=== PATIENT | male | born 1955 | race Caucasian/White ===

== ENCOUNTER 2017-12-05 12:15 | Inpatient (IN) | payer OTHER ==
[~2017-12-05] VITALS: Ht 182.9 cm; Wt 96.8 kg
[2017-12-05 12:24] VITALS: BP 158/70; PULSE 159; RESP 15; TEMP 98.7; O2SAT 96
[2017-12-05] MEDS ORDERED: CLAR10CA3 PO (12:34)
[2017-12-05] MEDS ORDERED: ASPI81TA81 (12:34)
[2017-12-05] MEDS ORDERED: HYDR-755 PO (12:34)
[2017-12-05] MEDS ORDERED: FLUT50SP EACH NARE (12:34)
[2017-12-05] MEDS ORDERED: TRAM50TA PO (12:34)
[2017-12-05] MEDS ORDERED: MULT-65 PO (12:34)
[2017-12-05] MEDS ORDERED: DULO1CAP2 PO (12:34)
[2017-12-05] MEDS ORDERED: TRAZ100T10 PO (12:34)
[2017-12-05] MEDS ORDERED: CARV25TA (12:34)
[2017-12-05] MEDS ORDERED: DILTIAZEM HCL 25 MG/5 ML VIAL IV PUSH ONE (12:45)
[2017-12-05 12:49] VITALS: O2SAT 97
[2017-12-05 13:10] LABS: AUTOMATED NEUTROPHIL # 7.7 TH/MM3 (1.8-7.7); BASOPHIL % 0.4 % (0.0-2.0); EOSINOPHIL # 0.1 TH/MM3 (0-0.4); EOSINOPHIL % 0.6 % (0.0-4.0); HEMATOCRIT 43.8 % (39.0-51.0); HEMOGLOBIN 14.9 GM/DL (13.0-17.0); LYMPH % 11.9 % (9.0-44.0); LYMPHOCYTE # 1.2 TH/MM3 (1.0-4.8); MEAN CELL VOLUME 102.9 FL (80.0-100.0); MEAN PLATELET VOLUME 9.8 FL (7.0-11.0); MONO % 10.4 % (0.0-8.0); NEUT % 76.7 % (16.0-70.0); PLATELET COUNT 185 TH/MM3 (150-450); RED BLOOD COUNT 4.26 MIL/MM3 (4.50-5.90); RED CELL DISTRIBUTION WIDTH 13.3 % (11.6-17.2)
[2017-12-05 13:22] LABS: INTERNATIONAL NORMALIZED RATIO 1.1 RATIO
[2017-12-05 13:38] LABS: ALBUMIN 3.1 GM/DL (3.4-5.0); AST (GOT) 25 U/L (15-37); BLOOD UREA NITROGEN 14 MG/DL (7-18); CHLORIDE 106 MEQ/L (98-107); CREATININE 1.04 MG/DL (0.60-1.30); GLOMERULAR FILTRATION RATE 73 ML/MIN (>89); GLUCOSE,RANDOM 106 MG/DL (74-106); MAGNESIUM 1.4 MG/DL (1.5-2.5); SODIUM (NA) 138 MEQ/L (136-145)
[2017-12-05 13:43] LABS: ALKALINE PHOSPHATASE 82 U/L (45-117); ALT (GPT) 36 U/L (12-78); TOTAL BILIRUBIN ADULT 0.5 MG/DL (0.2-1.0); TOTAL PROTEIN 7.5 GM/DL (6.4-8.2); TROPONIN I LESS THAN 0.02 NG/ML (0.02-0.05)
[2017-12-05] MEDS ORDERED: DILTIAZEM HCL 25 MG/5 ML VIAL IV PUSH PRN (13:45)
--- NOTE | 2017-12-05 13:59 | RADRPT ---
EXAM DATE/TIME: 12/05/2017 13:31 [place] COMPARISON: No previous studies available for comparison. INDICATIONS : Chest pain MEDICAL HISTORY : A-fib SURGICAL HISTORY : None. ENCOUNTER: Initial ACUITY: 1 day PAIN SCORE: 0/10 LOCATION: Bilateral chest FINDINGS: 2 portable frontal views of the chest demonstrate the lungs to be symmetrically aerated without evide nce of mass, infiltrate or effusion. The cardiomediastinal contours are unremarkable. Osseous struc tures are intact. CONCLUSION: No acute disease. Vaibhav Coulter Jr., MD on December 05, 2017 at 13:57 Board Certified Radiologist. This report was verified electronically.
[2017-12-05 14:00] VITALS: BP 114/66; PULSE 110; RESP 17; O2SAT 98
[2017-12-05] MEDS: DILTIAZEM INJ 125 MG in SODIUM CHLORIDE 0.9% INJ 100 ML IV PRN ×2 (14:16→16:04)
--- NOTE | 2017-12-05 15:23 | PD ---
HPI Chief Complaint: Cardiac Complaint Time Seen by Provider: 12:35 Travel History International Travel<30 days: No Contact w/Intl Traveler<30days: No Traveled to known affect area: No History of Present Illness HPI 61-year-old male that presents to the ED for evaluation of atrial fibrillation. Patient was seen at the [facility] today and had an EKG that shows elevated heart rate of the joint oblation RVR. Per patient she's had it A. fib in the past about 10 years ago and had a cardioversion with improvement of symptoms. He hasn't had anything like that since. He does take covered all over his been taking it chronically with minimal issues. Per patient she's been under a lot of stress lately. He has upcoming divorce with his of some time and apparently things are going well. He is also very concerned about the dog that he has been out of his psychosis. He is also been battling some congestion and allergies for the past couple of months that did not seem to be getting better. He wasn't sure whether this things trigger. He denies any pain but he states feeling very tired and weak. He denies any shortness of breath. No recent travel. Does not take any blood thinners. Does take an aspirin at night. History of hypertension as well as. Follow with the [facility] for his care. No pain at this time but states that he feels like his heart is racing. PFSH Past Medical History Depression: Yes Coronary Artery Disease: Yes Tetanus Vaccination: > 5 Years Influenza Vaccination: Yes Past Surgical History Surgical History: No Previous Surgery Social History Alcohol Use: Yes (10/17 VODKA ) Tobacco Use: No Substance Use: Yes (MARIJUANA DAILY ) Allergies-Medications (Allergen,Severity, Reaction): Coded Allergies: bupropion (Verified Allergy, Severe, headaches, 12/05/17) Reported Meds & Prescriptions Reported Meds & Active Scripts Active Reported Trazodone (Trazodone HCl) 100 Mg Tablet 100 Mg PO HS Tramadol (Tramadol HCl) 50 Mg Tab 50 Mg PO Q4H PRN Duloxetine DR (Duloxetine HCl) 30 Mg Capdr 30 Mg PO DAILY Claritin (Loratadine) 10 Mg Cap 10 Mg PO DAILY Fluticasone Nasal [place] 50 Mcg/Act Naspr 50 Mcg EACH NARE BID 50 mcg/spray Carvedilol 25 Mg Tab 25 Mg BID Hydroxyzine HCl 10 Mg Tab 10 Mg PO TID Multi-Vitamin Daily (Multiple Vitamin) 1 Tab Tab 1 Tab PO DAILY Aspir-81 (Aspirin) 81 Mg Tabdr Review of Systems Except as stated in HPI: all other systems reviewed are Neg Physical Exam Narrative GENERAL: SKIN: Warm and dry. HEAD: Atraumatic. Normocephalic. EYES: Pupils equal and round. No scleral icterus. No injection or drainage. ENT: No nasal bleeding or discharge. Mucous membranes pink and moist. Tongue is midline. No uvula deviation. NECK: Trachea midline. No JVD. CARDIOVASCULAR: Irregular rate and rhythm. No murmurs, S3, S4. RESPIRATORY: No accessory muscle use. Clear to auscultation. Breath sounds equal bilaterally. GASTROINTESTINAL: Abdomen soft, non-tender, nondistended. Hepatic and splenic margins not palpable. MUSCULOSKELETAL: Extremities without clubbing, cyanosis, or edema. No obvious deformities. Full range of motion of the upper and lower extremities bilaterally. 2+ pulses bilaterally. NEUROLOGICAL: Awake and alert. No obvious cranial nerve deficits. Motor grossly within normal limits. Five out of 5 muscle strength in the arms and legs. Normal speech. PSYCHIATRIC: Appropriate mood and affect; insight and judgment normal. Data Data Last Documented VS Vital Signs Date Time Temp Pulse Resp B/P (MAP) Pulse Ox O2 Delivery O2 Flow Rate FiO2 12/05/17 14:16 128 112/67 12/05/17 14:00 17 98 Nasal Cannula 2.00 12/05/17 12:24 98.7 Orders Orders Electrocardiogram (12/05/17 12:42) Complete Blood Count With Diff (12/05/17 12:42) Comprehensive Metabolic Panel (12/05/17 12:42) Ckmb (Isoenzyme) Profile (12/05/17 12:42) Troponin I (12/05/17 12:42) Prothrombin Time / Inr (Pt) (12/05/17 12:42) Act Partial Throm Time (Ptt) (12/05/17 12:42) Magnesium (Mg) (12/05/17 12:42) Chest, Single Ap (12/05/17 12:42) Iv Access Insert/Monitor (12/05/17 12:42) Ecg Monitoring (12/05/17 12:42) Oximetry (12/05/17 12:42) Diltiazem Inj (Cardizem Inj) (12/05/17 12:45) Vital Signs (Adult) Q15MX4,Q4H (12/05/17 13:24) Head Greenskeeper / Telemetry LAUREL.Q8H (12/05/17 13:24) Cardiac Rhythm LAUREL.Q8H (12/05/17 13:24) Notify Dr: Other (12/05/17 13:24) Diltiazem Inj (Cardizem Inj) (12/05/17 13:30) B-Type Natriuretic Peptide (12/05/17 13:42) Diltiazem Inj (Cardizem Inj) (12/05/17 13:45) Magnesium Sulfate 1 Gm Premix (Magnesium (12/05/17 16:00) Admit To Inpatient (12/05/17 ) Vital Signs (Adult) Q4H (12/05/17 15:46) Activity Oob With Assistance (12/05/17 15:46) Head Greenskeeper / Telemetry .CONTINUOUS (12/05/17 15:46) Sodium Chloride 0.9% Flush (Ns Flush) (12/05/17 16:00) Sodium Chloride 0.9% Flush (Ns Flush) (12/05/17 21:00) Comprehensive Metabolic Panel (12/06/17 06:00) Complete Blood Count With Diff (12/06/17 06:00) Scd Bilateral/Knee High LAUREL.BID (12/05/17 15:46) Naloxone Inj (Narcan Inj) (12/05/17 16:00) Magnesium Hydroxide Liq (Milk Of Magnesi (12/05/17 16:00) Sennosides (Senokot) (12/05/17 16:00) Bisacodyl Supp (Dulcolax Supp) (12/05/17 16:00) Lactulose Liq (Lactulose Liq) (12/05/17 16:00) Inpatient Certification (12/05/17 ) Admit Order (Ed Use Only) (12/05/17 15:58) Labs Laboratory Tests Test 12/05/17 12:50 White Blood Count 10.0 TH/MM3 Red Blood Count 4.26 MIL/MM3 Hemoglobin 14.9 GM/DL Hematocrit 43.8 % Mean Corpuscular Volume 102.9 FL Mean Corpuscular Hemoglobin 35.0 PG Mean Corpuscular Hemoglobin Concent 34.0 % Red Cell Distribution Width 13.3 % Platelet Count 185 TH/MM3 Mean Platelet Volume 9.8 FL Neutrophils (%) (Auto) 76.7 % Lymphocytes (%) (Auto) 11.9 % Monocytes (%) (Auto) 10.4 % Eosinophils (%) (Auto) 0.6 % Basophils (%) (Auto) 0.4 % Neutrophils # (Auto) 7.7 TH/MM3 Lymphocytes # (Auto) 1.2 TH/MM3 Monocytes # (Auto) 1.0 TH/MM3 Eosinophils # (Auto) 0.1 TH/MM3 Basophils # (Auto) 0.0 TH/MM3 CBC Comment DIFF FINAL Differential Comment Prothrombin Time 11.0 SEC Prothromb Time International Ratio 1.1 RATIO Activated Partial Thromboplast Time 24.7 SEC Blood Urea Nitrogen 14 MG/DL Creatinine 1.04 MG/DL Random Glucose 106 MG/DL Total Protein 7.5 GM/DL Albumin 3.1 GM/DL Calcium Level 9.0 MG/DL Magnesium Level 1.4 MG/DL Alkaline Phosphatase 82 U/L Aspartate Amino Transf (AST/SGOT) 25 U/L Alanine Aminotransferase (ALT/SGPT) 36 U/L Total Bilirubin 0.5 MG/DL Sodium Level 138 MEQ/L Potassium Level 4.1 MEQ/L Chloride Level 106 MEQ/L Carbon Dioxide Level 24.0 MEQ/L Anion Gap 8 MEQ/L Estimat Glomerular Filtration Rate 73 ML/MIN Total Creatine Kinase 63 U/L Troponin I LESS THAN 0.02 NG/ML B-Type Natriuretic Peptide 423 PG/ML MDM Medical Decision Making Medical Screen Exam Complete: Yes Emergency Medical Condition: Yes Medical Record Reviewed: Yes Interpretation(s) EKG shows A. fib with RVR and a heart rate in the 140s read by me and attending. CBC & BMP Diagram 12/05/17 12:50 Total Protein 7.5, Albumin 3.1 L, Calcium Level 9.0, Magnesium Level 1.4 L, Alkaline Phosphatase 82, Aspartate Amino Transf (AST/SGOT) 25, Alanine Aminotransferase (ALT/SGPT) 36, Total Bilirubin 0.5 Last Impressions Chest X-Ray 12/05/17 1242 Signed Impressions: Service Date/Time: Tuesday, December 05, 2017 13:31 - CONCLUSION: No acute disease. Vaibhav Coulter Jr., MD troponin and CKMB negative Differential Diagnosis Atrial fibrillation with RVR versus A. fib versus chest pain versus weakness versus CHF Narrative Course 61-year-old male that presents to the ED for evaluation of atrial fibrillation with RVR. Patient was properly examined and was found to have signs and symptoms consistent with A. fib with RVR. Very tachycardic initially in the 150s 170s. He was given a bolus of diltiazem with good results but after a couple minutes the heart rate came back up. He was given a second bolus with again improvement but the heart rate came coming back. He was put on the drip. Labs and imaging were ordered. Labs and imaging were essentially negative other than for A. fib and RVR. Because patient continues to have RVR we do recommend admission for further eval. Patient agrees with this plan. We had case management talk to the patient about who can take care of his dog at home as he is concerned that the dog will not survive without care. MAEVE was paged. Dr Flowers agrees to admission. Diagnosis Primary Impression: Atrial fibrillation with RVR Admitting Information Admitting Physician Requests: Admit Hiren Friedman Dec 05, 2017 15:22
[2017-12-05] MEDS ORDERED: SODIUM CHLORIDE 0.9% FLUSH 10 ML FLUSH IV FLUSH PRN (16:00)
[2017-12-05] MEDS ORDERED: MAGNESIUM HYDROXIDE SUSP 30 ML CUP PO PRN (16:00)
[2017-12-05] MEDS ORDERED: BISACODYL 10 MG SUPP RECTAL PRN (16:00)
[2017-12-05] MEDS ORDERED: MAGNESIUM SULFATE 1 GM PREMIX 100 ML IV ONE (16:00)
[2017-12-05] MEDS ORDERED: LACTULOSE SYRUP 20 GM/30 ML CUP PO PRN (16:00)
[2017-12-05] MEDS ORDERED: NALOXONE HCL 0.4 MG/ML AMP IV PUSH PRN (16:00)
[2017-12-05] MEDS ORDERED: SENNOSIDES 8.6 MG TAB PO PRN (16:00)
--- NOTE | 2017-12-05 16:08 | PD ---
Physical Exam Date Seen by Provider: Dec 05, 2017 Time Seen by Provider: 14:30 Narrative I am seeing this patient with Hiren Friedman PA-C. This is a 61-year-old male [facility] with RVR. Patient states she has had shortness of breath and lightheadedness over the last 2-3 weeks. Patient denies any chest pain, chest pressure. He states that when he exerts himself he becomes winded and short of breath. The patient has had previous cardioversions in the past. He states that he last had a cardioversion, 5 years ago. Patient does give history he has had a lot of stress and has been drinking a lot of alcohol over the last several weeks/months. He is currently going through divorce and reports that this has caused severe stress. Data Data Last Documented VS Vital Signs Date Time Temp Pulse Resp B/P (MAP) Pulse Ox O2 Delivery O2 Flow Rate FiO2 12/05/17 14:16 128 112/67 12/05/17 14:00 17 98 Nasal Cannula 2.00 12/05/17 12:24 98.7 Orders Orders Electrocardiogram (12/05/17 12:42) Complete Blood Count With Diff (12/05/17 12:42) Comprehensive Metabolic Panel (12/05/17 12:42) Ckmb (Isoenzyme) Profile (12/05/17 12:42) Troponin I (12/05/17 12:42) Prothrombin Time / Inr (Pt) (12/05/17 12:42) Act Partial Throm Time (Ptt) (12/05/17 12:42) Magnesium (Mg) (12/05/17 12:42) Chest, Single Ap (12/05/17 12:42) Iv Access Insert/Monitor (12/05/17 12:42) Ecg Monitoring (12/05/17 12:42) Oximetry (12/05/17 12:42) Diltiazem Inj (Cardizem Inj) (12/05/17 12:45) Vital Signs (Adult) Q15MX4,Q4H (12/05/17 13:24) Production Potter / Telemetry LAUREL.Q8H (12/05/17 13:24) Cardiac Rhythm LAUREL.Q8H (12/05/17 13:24) Notify Dr: Other (12/05/17 13:24) Diltiazem Inj (Cardizem Inj) (12/05/17 13:30) B-Type Natriuretic Peptide (12/05/17 13:42) Diltiazem Inj (Cardizem Inj) (12/05/17 13:45) Magnesium Sulfate 1 Gm Premix (Magnesium (12/05/17 16:00) Admit To Inpatient (12/05/17 ) Vital Signs (Adult) Q4H (12/05/17 15:46) Activity Oob With Assistance (12/05/17 15:46) Production Potter / Telemetry .CONTINUOUS (12/05/17 15:46) Sodium Chloride 0.9% Flush (Ns Flush) (12/05/17 16:00) Sodium Chloride 0.9% Flush (Ns Flush) (12/05/17 21:00) Comprehensive Metabolic Panel (12/06/17 06:00) Complete Blood Count With Diff (12/06/17 06:00) Scd Bilateral/Knee High LAUREL.BID (12/05/17 15:46) Naloxone Inj (Narcan Inj) (12/05/17 16:00) Magnesium Hydroxide Liq (Milk Of Magnesi (12/05/17 16:00) Sennosides (Senokot) (12/05/17 16:00) Bisacodyl Supp (Dulcolax Supp) (12/05/17 16:00) Lactulose Liq (Lactulose Liq) (12/05/17 16:00) Inpatient Certification (12/05/17 ) Admit Order (Ed Use Only) (12/05/17 15:58) Labs Laboratory Tests Test 12/05/17 12:50 White Blood Count 10.0 TH/MM3 Red Blood Count 4.26 MIL/MM3 Hemoglobin 14.9 GM/DL Hematocrit 43.8 % Mean Corpuscular Volume 102.9 FL Mean Corpuscular Hemoglobin 35.0 PG Mean Corpuscular Hemoglobin Concent 34.0 % Red Cell Distribution Width 13.3 % Platelet Count 185 TH/MM3 Mean Platelet Volume 9.8 FL Neutrophils (%) (Auto) 76.7 % Lymphocytes (%) (Auto) 11.9 % Monocytes (%) (Auto) 10.4 % Eosinophils (%) (Auto) 0.6 % Basophils (%) (Auto) 0.4 % Neutrophils # (Auto) 7.7 TH/MM3 Lymphocytes # (Auto) 1.2 TH/MM3 Monocytes # (Auto) 1.0 TH/MM3 Eosinophils # (Auto) 0.1 TH/MM3 Basophils # (Auto) 0.0 TH/MM3 CBC Comment DIFF FINAL Differential Comment Prothrombin Time 11.0 SEC Prothromb Time International Ratio 1.1 RATIO Activated Partial Thromboplast Time 24.7 SEC Blood Urea Nitrogen 14 MG/DL Creatinine 1.04 MG/DL Random Glucose 106 MG/DL Total Protein 7.5 GM/DL Albumin 3.1 GM/DL Calcium Level 9.0 MG/DL Magnesium Level 1.4 MG/DL Alkaline Phosphatase 82 U/L Aspartate Amino Transf (AST/SGOT) 25 U/L Alanine Aminotransferase (ALT/SGPT) 36 U/L Total Bilirubin 0.5 MG/DL Sodium Level 138 MEQ/L Potassium Level 4.1 MEQ/L Chloride Level 106 MEQ/L Carbon Dioxide Level 24.0 MEQ/L Anion Gap 8 MEQ/L Estimat Glomerular Filtration Rate 73 ML/MIN Total Creatine Kinase 63 U/L Troponin I LESS THAN 0.02 NG/ML B-Type Natriuretic Peptide 423 PG/ML MDM Medical Record Reviewed: Yes Supervised Visit with NEHEMIAH: Yes Narrative Course 7-year-old male with history of A. fib that had had previous cardioversion 5 years ago, presents with A. fib with RVR. Patient states he has been feeling bad for 2-3 weeks. He is likely been in A. fib with RVR for that amount of time. Patient's been started on Cardizem drip. He was currently it with a heart rate in the low 100s. He came in with a heart rate in the 140s-160s. The patient has no chest pain, chest pressure. Now that his rate is controlled , he feels much improved. Diagnosis Primary Impression: Atrial fibrillation with RVR Additional Impression: Acute life stressors Admitting Information Admitting Physician Requests: Admit Herminio Isaac MD Dec 05, 2017 16:08
--- NOTE | 2017-12-05 16:33 | EKG ---
Date Performed: 12/05/2017 Time Performed: 12:26:52 PTAGE: 61 years EKG: ATRIAL FIBRILLATION WITH RAPID VENTRICULAR RESPONSE ABNORMAL RHYTHM ECG NO PREVIOUS TRACING DOCTOR: Lior Montalvo Interpretating Date/Time 12/05/2017 16:31:03
[2017-12-05 17:14] VITALS: BP 132/86
[2017-12-05 18:30] VITALS: BP 109/74; PULSE 86; RESP 23; TEMP 98.5; O2SAT 98
[2017-12-05] MEDS ORDERED: LORazepam 1 MG TAB PO PRN (18:45)
[2017-12-05] MEDS ORDERED: FLUMAZENIL 0.5 MG/5 ML VIAL IV PUSH PRN (18:45)
[2017-12-05] MEDS ORDERED: LORazepam 2 MG TAB PO PRN (18:45)
[2017-12-05] MEDS ORDERED: LORazepam 2 MG/ML VIAL IV PUSH PRN ×4 (18:45)
[2017-12-05 20:00] VITALS: BP 137/63; PULSE 115; PULSE 88; RESP 20; TEMP 98.7; O2SAT 96
[2017-12-05] MEDS: SODIUM CHLORIDE 0.9% FLUSH 10 ML FLUSH IV FLUSH SCH (22:02)
--- NOTE | 2017-12-05 23:40 | HHI.HP ---
[facility] Ad[facility] Diagnosis acute atrial fibrillation with RVR Diagnoses: Travel History International Travel<30 Days: No Contact w/Intl Traveler <30 Da: No Traveled to Known Affected Are: No History of Present Illness 61-year-old male with a history of hypertension, depression, atrial fibrillation ,recent ongoing divorce proceedings coupled with heavy drinking of 3-4 vodka drinks per day, who presents with a one-week history of aggressively worsening shortness of breath, orthopnea. He denies any chest pain, lightheadedness, dizziness. He does report chills occasionally, no fevers. Patient says he has been drinking heavily over the past several months due to his ongoing divorce. Patient reports previous history of atrial fibrillation with RVR in 2010 following previous break up, heavy drinkingthis was resistant to medication ( although CIWA was not tried) and eventually required cardioversion Review of Systems Except as stated in HPI: all other systems reviewed are Neg Past Family Social History Past Medical History Depression Atrial fibrillation Past Surgical History No surgeries. Patient did have a cardioversion. Atrial fibrillation 2010. Reported Medications Reported Meds & Active Scripts Active Reported Trazodone (Trazodone HCl) 100 Mg Tablet 100 Mg PO HS Tramadol (Tramadol HCl) 50 Mg Tab 50 Mg PO Q4H PRN Duloxetine DR (Duloxetine HCl) 30 Mg Capdr 30 Mg PO DAILY Claritin (Loratadine) 10 Mg Cap 10 Mg PO DAILY Fluticasone Nasal [place] 50 Mcg/Act Naspr 50 Mcg EACH NARE BID 50 mcg/spray Carvedilol 25 Mg Tab 25 Mg BID Hydroxyzine HCl 10 Mg Tab 10 Mg PO TID Multi-Vitamin Daily (Multiple Vitamin) 1 Tab Tab 1 Tab PO DAILY Aspir-81 (Aspirin) 81 Mg Tabdr Allergies: Coded Allergies: bupropion (Verified Allergy, Severe, headaches, 12/05/17) Family History Mother from breast cancer. Father secondary to throat cancer. Social History Nonsmoker. Patient drinks 3-4 vodka drinks per day. He denies any withdrawal. Patient does report occasional marijuana. Physical Exam Vital Signs Vital Signs Date Time Temp Pulse Resp B/P (MAP) Pulse Ox O2 Delivery O2 Flow Rate FiO2 12/05/17 18:30 98.5 86 23 109/74 (86) 98 12/05/17 17:14 104 16 132/86 (101) 99 Nasal Cannula 2.00 12/05/17 16:04 142 158/114 12/05/17 14:16 128 112/67 12/05/17 14:00 110 17 114/66 (82) 98 Nasal Cannula 2.00 12/05/17 12:49 97 Nasal Cannula 2.00 12/05/17 12:24 98.7 159 15 158/70 (99) 96 Physical Exam GENERAL: This is a well-nourished, well-developed patient, in no apparent distress. SKIN: No rashes, ecchymoses or lesions. Cool and dry. HEAD: Atraumatic. Normocephalic. No temporal or scalp tenderness. EYES: Pupils equal round and reactive. Extraocular motions intact. No scleral icterus. No injection or drainage. ENT: Nose without bleeding, purulent drainage or septal hematoma. Throat without erythema, tonsillar hypertrophy or exudate. Uvula midline. Airway patent. NECK: Trachea midline. No JVD or lymphadenopathy. Supple, nontender, no meningeal signs. CARDIOVASCULAR: irregularly irregular rhythm without murmurs, gallops, or rubs. RESPIRATORY: Clear to auscultation. Breath sounds equal bilaterally. No wheezes , rales, or rhonchi. GASTROINTESTINAL: Abdomen soft, non-tender, nondistended. No hepato-splenomegaly , or palpable masses. No guarding. MUSCULOSKELETAL: Extremities without clubbing, cyanosis, or edema. No joint tenderness, effusion, or edema noted. No calf tenderness. Negative Homans sign bilaterally. NEUROLOGICAL: Awake and alert. Cranial nerves II through XII intact. Motor and sensory grossly within normal limits. Five out of 5 muscle strength in all muscle groups. Normal speech. Laboratory Laboratory Tests Test 12/05/17 12:50 White Blood Count 10.0 Red Blood Count 4.26 Hemoglobin 14.9 Hematocrit 43.8 Mean Corpuscular Volume 102.9 Mean Corpuscular Hemoglobin 35.0 Mean Corpuscular Hemoglobin Concent 34.0 Red Cell Distribution Width 13.3 Platelet Count 185 Mean Platelet Volume 9.8 Neutrophils (%) (Auto) 76.7 Lymphocytes (%) (Auto) 11.9 Monocytes (%) (Auto) 10.4 Eosinophils (%) (Auto) 0.6 Basophils (%) (Auto) 0.4 Neutrophils # (Auto) 7.7 Lymphocytes # (Auto) 1.2 Monocytes # (Auto) 1.0 Eosinophils # (Auto) 0.1 Basophils # (Auto) 0.0 CBC Comment DIFF FINAL Differential Comment Prothrombin Time 11.0 Prothromb Time International Ratio 1.1 Activated Partial Thromboplast Time 24.7 Blood Urea Nitrogen 14 Creatinine 1.04 Random Glucose 106 Total Protein 7.5 Albumin 3.1 Calcium Level 9.0 Magnesium Level 1.4 Alkaline Phosphatase 82 Aspartate Amino Transf (AST/SGOT) 25 Alanine Aminotransferase (ALT/SGPT) 36 Total Bilirubin 0.5 Sodium Level 138 Potassium Level 4.1 Chloride Level 106 Carbon Dioxide Level 24.0 Anion Gap 8 Estimat Glomerular Filtration Rate 73 Total Creatine Kinase 63 Troponin I LESS THAN 0.02 B-Type Natriuretic Peptide 423 Result Diagram: 12/05/17 1250 12/05/17 1250 Caprini VTE Risk Assessment Caprini VTE Risk Assessment: No/Low Risk (score <= 1) Caprini Risk Assessment Model Point Value = 1 Point Value = 2 Point Value = 3 Point Value = 5 Age 41-60 Minor surgery BMI > 25 kg/m2 Swollen legs Varicose veins or History of unexplained or recurrent spontaneous Oral contraceptives or hormone replacement Sepsis (< 1 month) Serious lung disease, including pneumonia (< 1 month) Abnormal pulmonary function Acute myocardial infarction Congestive heart failure (< 1 month) History of inflammatory bowel disease Medical patient at bed rest Age 61-74 Arthroscopic surgery Major open surgery (> 45 min) Laparoscopic surgery (> 45 min) Malignancy Confined to bed (> 72 hours) Immobilizing plaster cast Central venous access Age >= 75 History of VTE Family history of VTE Factor V Leiden Prothrombin [id number] Lupus anticoagulant Anticardiolipin antibodies Elevated serum homocysteine Heparin-induced thrombocytopenia Other congenital or acquired thrombophilia Stroke (< 1 month) Elective arthroplasty Hip, pelvis, or leg fracture Acute spinal cord injury (< 1 month) Prophylaxis Regimen Total Risk Factor Score Risk Level Prophylaxis Regimen 0-1 Low Early ambulation 2 Moderate Order ONE of the following: *Sequential Compression Device (SCD) *Heparin 5000 units SQ BID 3-4 Higher Order ONE of the following medications: *Heparin 5000 units SQ TID *Enoxaparin/Lovenox 40 mg SQ daily (WT < 150 kg, CrCl > 30 mL/min) *Enoxaparin/Lovenox 30 mg SQ daily (WT < 150 kg, CrCl > 10-29 mL/min) *Enoxaparin/Lovenox 30 mg SQ BID (WT < 150 kg, CrCl > 30 mL/min) AND/OR *Sequential Compression Device (SCD) 5 or more Highest Order ONE of the following medications: *Heparin 5000 units SQ TID (Preferred with Epidurals) *Enoxaparin/Lovenox 40 mg SQ daily (WT < 150 kg, CrCl > 30 mL/min) *Enoxaparin/Lovenox 30 mg SQ daily (WT < 150 kg, CrCl > 10-29 mL/min) *Enoxaparin/Lovenox 30 mg SQ BID (WT < 150 kg, CrCl > 30 mL/min) AND *Sequential Compression Device (SCD) Assessment and Plan Assessment and Plan //Atrial fibrillation with RVR. Start on diltiazem drip. Hold home Coreg. Plan to transition to by mouth in the morning. //Acute alcohol withdrawal with tachycardia, atrial fibrillation with RVR. Patient counseled on alcohol cessation. CIWA protocol with improvement in heart rate. Continue to monitor. //Depression. Chronic. Continue home medications. Discussed Condition With patient, nurse, ED physician Physician Certification 2 Midnight Certification Type: Admission for Inpatient Services Order for Inpatient Services The services are ordered in accordance with Medicare regulations or non- Medicare payer requirements, as applicable. In the case of services not specified as inpatient-only, they are appropriately provided as inpatient services in accordance with the 2-midnight benchmark. Estimated LOS (days): 2 days is the estimated time the patient will need to remain in the hospital, assuming treatment plan goals are met and no additional complications. Post-Hospital Plan: Not yet determined Adelso Flowers MD Dec 05, 2017 23:40
[2017-12-05] MEDS: FLUTICASONE PROPIONATE 50 MCG/ACT 16 GM NASAL SPRAY EACH NARE SCH (23:45)
[2017-12-06] VITALS (13 sets, daily range): BP systolic 107–131; BP diastolic 72–87; PULSE 69–150; RESP 17–21; TEMP 97.3–98.5; O2SAT 96–98
[2017-12-06] MEDS: traZODone HCL 100 MG TAB PO SCH ×2 (01:37→20:19)
[2017-12-06] MEDS: DILTIAZEM INJ 125 MG in SODIUM CHLORIDE 0.9% INJ 100 ML IV PRN ×2 (02:07→15:19)
[2017-12-06] MEDS: traMADol HCL 50 MG TAB PO PRN ×4 (02:10→20:19)
[2017-12-06] MEDS: FLUTICASONE PROPIONATE 50 MCG/ACT 16 GM NASAL SPRAY EACH NARE SCH ×2 (09:00→20:20)
[2017-12-06] MEDS: SODIUM CHLORIDE 0.9% FLUSH 10 ML FLUSH IV FLUSH SCH ×2 (09:00→20:20)
[2017-12-06] MEDS: LORATADINE 10 MG TAB PO SCH (09:58)
[2017-12-06] MEDS ORDERED: PNEUMOCOCCAL POLYVALENT INJ 25 MCG/0.5 ML SYR IM ONE (10:00)
[2017-12-06 10:27] LABS: AUTOMATED NEUTROPHIL # 6.2 TH/MM3 (1.8-7.7); BASOPHIL # 0.1 TH/MM3 (0-0.2); BASOPHIL % 0.7 % (0.0-2.0); EOSINOPHIL # 0.1 TH/MM3 (0-0.4); EOSINOPHIL % 1.2 % (0.0-4.0); HEMATOCRIT 40.1 % (39.0-51.0); HEMOGLOBIN 13.8 GM/DL (13.0-17.0); LYMPH % 19.6 % (9.0-44.0); LYMPHOCYTE # 1.8 TH/MM3 (1.0-4.8); MEAN CELL VOLUME 102.6 FL (80.0-100.0); MEAN CORPUSCULAR HEMOGLOBIN 35.4 PG (27.0-34.0); MEAN CORPUSCULAR HGB CONC 34.5 % (32.0-36.0); MEAN PLATELET VOLUME 9.9 FL (7.0-11.0); MONO % 9.6 % (0.0-8.0); MONOCYTE # 0.9 TH/MM3 (0-0.9); NEUT % 68.9 % (16.0-70.0); PLATELET COUNT 160 TH/MM3 (150-450); RED BLOOD COUNT 3.91 MIL/MM3 (4.50-5.90); RED CELL DISTRIBUTION WIDTH 13.3 % (11.6-17.2); WHITE BLOOD COUNT 9.1 TH/MM3 (4.0-11.0)
[2017-12-06 10:43] LABS: AST (GOT) 19 U/L (15-37); BICARBONATE 24.7 MEQ/L (21.0-32.0); BLOOD UREA NITROGEN 10 MG/DL (7-18); CALCIUM 8.7 MG/DL (8.5-10.1); CHLORIDE 104 MEQ/L (98-107); CREATININE 0.98 MG/DL (0.60-1.30); GLOMERULAR FILTRATION RATE 78 ML/MIN (>89); GLUCOSE,RANDOM 96 MG/DL (74-106); SODIUM (NA) 138 MEQ/L (136-145)
[2017-12-06 10:44] LABS: ALT (GPT) 32 U/L (12-78)
[2017-12-06 10:46] LABS: ALKALINE PHOSPHATASE 77 U/L (45-117); TOTAL BILIRUBIN ADULT 0.6 MG/DL (0.2-1.0); TOTAL PROTEIN 7.3 GM/DL (6.4-8.2)
--- NOTE | 2017-12-06 14:23 | HHI.PR ---
Subjective Remarks patient appears stress- "stressful 3 months" going through some difficult times/divorce - - personal affairs-- HR 130s- drip to be started- d/w staff history of chronic atrial fibrillation- had cardioversion done in the past and controlled since on Coreg 25 mg po bid- [facility] at one point was also on amiodarone History of PTSD just takes ASA no history of TIAs/CAD/MD Objective Vitals Vital Signs Date Time Temp Pulse Resp B/P (MAP) Pulse Ox O2 Delivery O2 Flow Rate FiO2 12/06/17 12:00 98.1 109 18 131/87 (102) 96 12/06/17 08:00 97.7 96 18 121/80 (94) 96 12/06/17 04:00 97.9 77 18 118/82 (94) 97 12/06/17 03:10 20 12/06/17 02:07 96 142/76 12/06/17 00:00 97.3 96 20 130/73 (92) 97 12/06/17 00:00 130 12/05/17 20:00 115 12/05/17 20:00 98.7 88 20 137/63 (87) 96 12/05/17 18:30 98.5 86 23 109/74 (86) 98 12/05/17 17:14 104 16 132/86 (101) 99 Nasal Cannula 2.00 12/05/17 16:04 142 158/114 I/O 12/05/17 12/05/17 12/05/17 12/06/17 12/06/17 12/06/17 07:00 15:00 23:00 07:00 15:00 23:00 Intake Total 100 ml 360 ml Balance 100 ml 360 ml Intake Oral 360 ml IV Total 100 ml # Voids 2 # Bowel Movements 0 Result Diagram: 12/06/17 0843 12/06/17 0843 Imaging Last Impressions Chest X-Ray 12/05/17 1242 Signed Impressions: Service Date/Time: Tuesday, December 05, 2017 13:31 - CONCLUSION: No acute disease. Vaibhav Coulter Jr., MD Objective Remarks awake and alert anxious anicteric lungs- clear irregularly irregular rhythm abdomen-soft nontender extremities- no edema A/P Assessment and Plan 61 years old male A Atrial fibrillation with RVR. states history of a fib in the past- had to be cardioverted per patient -bec - difficult to control and placed - on Coreg as OP states compliance. Per pt, At one point was on amiodarone Start on diltiazem drip currently on 15 mg/hr . - titrate to keep HR less than 100. Check echo- just done - check EF no history of CAD, TIA or CVA, not diabetic ASA daily. Add Coreg 3.125 mg po bid cardiology consult for recommendations Acute alcohol withdrawal with tachycardia, atrial fibrillation with RVR. Patient counseled on alcohol cessation. CIWA protocol Continue to monitor. contributing factor to rapid a fib states drinks Vodka - 3 shots daily, no history of DTs start Librium scheduled doses Anxiety. Chronic. Continue home medications.- going through stress past 2- 3 months and appears very emotionally distress and anxious get psychiatry consult Clay Martinez MD Dec 06, 2017 14:23
[2017-12-06] MEDS ORDERED: ASPIRIN EC 325 MG TABEC PO SCH (15:00)
--- NOTE | 2017-12-06 16:31 | ECHRPT ---
Indication: HEART FAILURE CONCLUSIONS Mildly dilated left ventricle. Wall thickness is normal. Global hypokinesis. The left ventricular systolic function is severely reduced with an estimated ejection fraction of 20 %. The right ventricular systoilc function is mildly decreased. The left atrial size is mildly dilated. The right atrial size is mildly dilated. Mild to moderate mitral valve regurgitation. There is mild tricuspid valve regurgitation. The estimated pulmonary arterial pressure is 29 mmHg. BP: / HR: 130 Rhythm: Atrial fibrillation MEASUREMENTS (Male / Female) Normal Values Technical Quality:Good 2D ECHO LV Diastolic Diameter PLAX 5.2 cm 4.2 - 5.9 / 3.9 - 5.3 cm IVS Diastolic Thickness 1.1 cm 0.6 - 1.0 / 0.6 - 0.9 cm LVPW Diastolic Thickness 0.8 cm 0.6 - 1.0 / 0.6 - 0.9 cm LV Relative Wall Thickness 0.4 RV Internal Dim ED PLAX 3.0 cm LA Systolic Diameter LX 3.7 cm 3.0 - 4.0 / 2.7 - 3.8 cm M-MODE Aortic Root Diameter MM 3.4 cm AV Cusp Separation MM 2.1 cm DOPPLER Mitral E Point Velocity 81.9 cm/s TR Peak Velocity 219.0 cm/s TR Peak Gradient 19.2 mmHg FINDINGS LEFT VENTRICLE Mildly dilated left ventricle. Wall thickness is normal. Global hypokinesis. The left ventricular systolic function is severely reduced with an estimated ejection fraction of 20 %. RIGHT VENTRICLE The right ventricular systoilc function is mildly decreased. LEFT ATRIUM The left atrial size is mildly dilated. RIGHT ATRIUM The right atrial size is mildly dilated. ATRIAL SEPTUM Normal atrial septal thickness without atrial level shunting by limited color doppler interrogation. AORTA The aortic root and proximal ascending aorta are normal in size on limited imaging. MITRAL VALVE Mild to moderate mitral valve regurgitation. AORTIC VALVE Trileaflet aortic valve. No aortic valve stenosis or regurgitation. TRICUSPID VALVE There is mild tricuspid valve regurgitation. The estimated pulmonary arterial pressure is 29 mmHg. PULMONARY VALVE The pulmonary valve is not well visualized. VESSELS The inferior vena cava is normal in size. PERICARDIUM No pericardial effusion. Lior Montalvo MD (Electronically Signed) Final Date:06 December 2017 16:30
[2017-12-06] MEDS: chlordiazePOXIDE 25 MG CAP PO SCH (16:53)
[2017-12-06] MEDS ORDERED: CARVEDILOL 3.125 MG TAB PO SCH (17:00)
[2017-12-06] MEDS ORDERED: DIGOXIN 0.5 MG/2 ML VIAL IV PUSH ONE ×2 (17:00→23:00)
[2017-12-06] MEDS: DULoxetine HCl DR 30 MG CAP PO SCH (18:12)
--- NOTE | 2017-12-06 19:07 | MB ---
cc: DEV PURVIS MD DATE OF CONSULTATION 12/06/17 REASON FOR CONSULTATION Atrial fibrillation with a rapid ventricular response. HISTORY OF PRESENT ILLNESS The patient is a 61-year-old white male with a history of paroxysmal atrial fibrillation and hypertension who was sent to the hospital by the [facility] after he was found to be in atrial fibrillation with a rapid ventricular response. The patient has a history of paroxysmal atrial fibrillation dating back to 2010 at which time he had a cardioversion performed. The patient denies palpitations, dizziness, syncope, near-syncope, chest pain or pedal edema. He had recent problems with nonproductive cough without fevers, chills or sweats. Today, he states he actually feels "better than I've ever felt". PAST MEDICAL HISTORY 1. Paroxysmal atrial fibrillation status post cardioversion 2010. 2. Hypertension. MEDICATIONS Cardiac medications at home 1. Carvedilol 25 mg p.o. b.i.d. 2. Aspirin 81 mg p.o. daily. ALLERGIES BUPROPION FAMILY HISTORY The patient's mother from breast cancer and his father from throat cancer. SOCIAL HISTORY The patient drinks about three to four vodka drinks a day. He quit smoking more than 10 years ago. He also smokes occasional marijuana. REVIEW OF SYSTEMS As in the history of present illness, otherwise, negative or noncontributory. He also denies headache, visual changes, abdominal pain, melena, dyspepsia, bright red blood per rectum and wheezing. PHYSICAL EXAMINATION VITAL SIGNS: Blood pressure 131/87 with a pulse of 125, respirations 18. GENERAL: He is a well-developed, well-nourished white male in no acute distress. HEENT: Jugular venous pressure is normal. Carotid pulses are 2+ bilaterally and without bruits. CHEST: Clear lung puckett. CARDIAC: He has a tachycardiac irregular rhythm without S3 or murmur. ABDOMEN: He has a soft, nontender abdomen. Bowel sounds are present. There is no definite hepatosplenomegaly. EXTREMITIES: No clubbing, cyanosis or edema. CARDIOLOGY STUDIES EKG shows atrial fibrillation with a rapid ventricular response, otherwise normal EKG. LABORATORY DATA WBC 9.1, hemoglobin 13.8, platelets 160, potassium 3.5, BUN 10, creatinine 0.98, troponin less than 0.02, CK 63, INR 1.1. IMAGING STUDIES Chest x-ray shows no acute disease. IMPRESSION Recurrent paroxysmal atrial fibrillation with a rapid ventricular response in this 61-year-old white male with a history of atrial fibrillation dating back to 2010, history of hypertension. At this time, he remains in atrial fibrillation with elevated heart rates. He is completely asymptomatic. There is no evidence for congestive heart failure or acute coronary syndrome. Unfortunately, his echo shows severely reduced left ventricular systolic function with ejection fraction of 20%. I suspect the cardiomyopathy may be tachycardia mediated, less likely alcohol induced. Because of his cardiomyopathy and history of hypertension, his thromboembolic risk is at least moderately elevated. RECOMMENDATIONS 1. Continue his Carvedilol 25 mg p.o. b.i.d. 2. Anticoagulation therapy with apixaban 5 mg p.o. b.i.d. 3. Continue intravenous Cardizem. 4. Add Digoxin. 5. He can be discharged when his heart rate is under control. 6. Add an KIA inhibitor as well given his reduced left ventricular systolic function. MD DENISHA Steven/ /4:53 PM /6:58 PM NICKI
[2017-12-06] MEDS: CARVEDILOL 12.5 MG TAB PO SCH (20:20)
[2017-12-06] MEDS: APIXABAN 5 MG TABLET PO SCH (20:21)
[2017-12-06] MEDS ORDERED: CARVEDILOL 12.5 MG TAB PO SCH (21:00)
[2017-12-07] MEDS: DILTIAZEM INJ 125 MG in SODIUM CHLORIDE 0.9% INJ 100 ML IV PRN (00:40)
[2017-12-07 03:41] VITALS: PULSE 74
[2017-12-07 04:25] VITALS: BP 116/73; PULSE 84; RESP 18; TEMP 98.3
[2017-12-07 04:40] VITALS: BP 122/77; PULSE 75
[2017-12-07 08:00] VITALS: BP 130/86; PULSE 83; RESP 18; TEMP 97.4; O2SAT 97
[2017-12-07] MEDS: SODIUM CHLORIDE 0.9% FLUSH 10 ML FLUSH IV FLUSH SCH (09:00)
[2017-12-07] MEDS: FLUTICASONE PROPIONATE 50 MCG/ACT 16 GM NASAL SPRAY EACH NARE SCH (09:00)
[2017-12-07] MEDS ORDERED: ENALAPRIL MALEATE 2.5 MG TAB PO SCH (09:00)
[2017-12-07] MEDS: LORATADINE 10 MG TAB PO SCH (09:00)
[2017-12-07] MEDS: CARVEDILOL 12.5 MG TAB PO SCH (09:25)
[2017-12-07] MEDS: chlordiazePOXIDE 25 MG CAP PO SCH (09:25)
[2017-12-07] MEDS: DULoxetine HCl DR 30 MG CAP PO SCH (09:26)
[2017-12-07] MEDS: APIXABAN 5 MG TABLET PO SCH (09:26)
[2017-12-07] MEDS: traMADol HCL 50 MG TAB PO PRN (09:34)
--- NOTE | 2017-12-07 10:55 | PD.PSY.CON ---
Provisional Diagnosis Admission Date Dec 05, 2017 at 16:00 [place] I. 1. Adjustment disorder with anxiety, improving 2. History of PTSD [place] II. Deferred History of Present Illness Service Psychiatry Consult Requested By Dr. Martinez Reason for Consult History of depression/anxiety. Very stressed. Primary Care Physician [facility] Mr. Montes is a 61-year-old male with a reported history of PTSD who presented to the emergency department voluntarily with complaints of A. fib with RVR apparently detected during screening examination at the [facility]. He has been admitted to the medical floor for further management of this issue. Reviewing the electronic medical record, it appears this is patient's first visit to [facility]. Patient seen and examined. Chart reviewed. Case discussed with Dr. Martinez. On my examination today, the patient reports that he is feeling a lot better today. He tells me "I haven't felt this good in months." He has apparently been distressed recently because of a protracted divorce in which his was trying to take some of his property and also steal his truck and dog. He also has been struggling with ringworm. He's had some financial stressors. Apparently, these all have been resolved to his satisfaction and he is feeling much better now. He denies any suicidal or homicidal ideation, intent or plan on direct questioning and contracts for safety. Mood is presently "pretty good. " I can elicit no depressive or hypomanic/manic symptoms at this time. He does carry a history of PTSD but does not report any symptoms consistent with decompensated post traumatic stress at this time. He does note that he occasionally experiences some hyperarousal. He denies any audiovisual hallucinations. I can elicit no delusional beliefs. No paranoia, no ideas of reference. The remainder of psychiatric ROS is negative. The patient has no acute physical complaints. Past psychiatric history: Patient reports a history of PTSD. He follows with nurse practitioner through the [facility]. He is prescribed Cymbalta 30 mg daily and trazodone 100 mg at bedtime and says that he has been taking stable doses since 2010. He is pleased with his current psychotropic medications and is not interested in making a change at this time. He denies a history of psychiatric admissions. He denies a history of suicide attempts. He denies a history of violent behavior. Family history: Patient reports that his father and sister have bipolar disorder. He denies a family history of suicide. Chemical dependency history: The patient reports that he has 2 drinks daily. He denies a history of blackouts but does admit to a history of DUIs. No reported withdrawal symptoms presently. No other substance use reported. Social history: Patient is recently . He has no children. He has some college. 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 He additionally served in the [employer] and is 100% disabled from this. He is a [employer]ec[employer]al. He denies any legal issues. He denies any access to guns or firearms. Review of Systems Except as stated in HPI: all other systems reviewed are Neg Past Family Social History Coded Allergies: bupropion (Verified Allergy, Severe, headaches, 12/05/17) Past Medical History See electronic medical record Reported Medications Trazodone (Trazodone) 100 Mg Tablet, 100 MG PO HS for Control Depression, #30 TAB 0 Refills 12/05/17 Tramadol (Tramadol) 50 Mg Tab, 50 MG PO Q4H Y for PAIN, TAB 0 Refills 12/05/[address] (Duloxetine DR) 30 Mg Capdr, 30 MG PO DAILY, #30 CAP 0 Refills 12/05/17 Loratadine (Claritin) 10 Mg Cap, 10 MG PO DAILY for Allergy Management, CAP 0 Refills 12/05/17 Fluticasone Nasal [place] (Fluticasone Nasal [place]) 50 Mcg/Act Naspr, 50 MCG EACH NARE BID for Allergy Management, #1 BOTTLE 0 Refills 50 mcg/spray 12/05/17 Carvedilol (Carvedilol) 25 Mg Tab, 25 MG BID, #60 TAB 0 Refills 12/05/17 Hydroxyzine HCl (Hydroxyzine HCl) 10 Mg Tab, 10 MG PO TID, TAB 0 Refills 12/05/17 Multiple Vitamin (Multi-Vitamin Daily) 1 Tab Tab, 1 TAB PO DAILY for Nutritional Supplement, TAB 0 Refills 12/05/[address] (Aspir-81) 81 Mg Tabdr 12/05/17 Current Medications Medications (Trade) Dose Ordered Sig/Noy Route Start Time Stop Time Status Last Admin Diltiazem HCl 125 mg/Sodium Chloride 125 ml @ 5 mls/hr TITRATE PRN IV 12/05/17 13:30 12/07/17 00:40 (Cardizem Inj) 34 mg ONCE PRN IV PUSH 12/05/17 13:45 12/05/17 14:16 (NS Flush) 2 ml UNSCH PRN IV FLUSH 12/05/17 16:00 (NS Flush) 2 ml BID IV FLUSH 12/05/17 21:00 12/06/17 20:20 (Narcan Inj) 0.4 mg UNSCH PRN IV PUSH 12/05/17 16:00 (Milk Of Magnesia Liq) 30 ml Q12H PRN PO 12/05/17 16:00 (Senokot) 17.2 mg Q12H PRN PO 12/05/17 16:00 (Dulcolax Supp) 10 mg DAILY PRN RECTAL 12/05/17 16:00 (Lactulose Liq) 30 ml DAILY PRN PO 12/05/17 16:00 (Romazicon Inj) 0.2 mg Q1M PRN IV PUSH 12/05/17 18:45 (Ativan) 1 mg Q4H PRN PO 12/05/17 18:45 12/06/17 18:12 (Ativan Inj) 1 mg Q4H PRN IV PUSH 12/05/17 18:45 (Ativan) 2 mg Q2H PRN PO 12/05/17 18:45 (Ativan Inj) 2 mg Q2H PRN IV PUSH 12/05/17 18:45 (Ativan Inj) 2 mg Q1H PRN IV PUSH 12/05/17 18:45 (Ativan Inj) 2 mg Q15M PRN IV PUSH 12/05/17 18:45 (Cymbalta Dr) 30 mg DAILY PO 12/06/17 09:00 12/07/17 09:26 (Flonase [place] Spr) 1 spray BID EACH NARE 12/05/17 23:45 12/06/17 20:20 (Claritin) 10 mg DAILY PO 12/06/17 09:00 12/07/17 09:00 (Ultram) 50 mg Q4H PRN PO 12/05/17 23:45 12/07/17 09:34 (Desyrel) 100 mg HS PO 12/05/17 23:45 12/06/17 20:19 (Librium) 25 mg TID PO 12/06/17 18:00 12/07/17 09:25 (Coreg) 25 mg Q12HR PO 12/06/17 21:00 12/07/17 09:25 (Eliquis) 5 mg BID PO 12/06/17 21:00 12/07/17 09:26 (Vasotec) 2.5 mg DAILY PO 12/07/17 09:00 12/07/17 09:25 Physical Exam Physical examination completed by primary team. On my examination today, the patient appears to be in no acute physical distress. No motoric abnormalities appreciated. No signs of withdrawal noted. Labs and vitals reviewed: Vital Signs Vital Signs Date Time Temp Pulse Resp B/P (MAP) Pulse Ox O2 Delivery O2 Flow Rate FiO2 12/07/17 08:00 97.4 83 18 130/86 (101) 97 12/07/17 04:25 Room Air 12/05/17 17:14 2.00 I/O 12/07/17 12/07/17 12/08/17 08:00 16:00 00:00 Intake Total 1037 ml Balance 1037 ml Lab Results Item Value Date Time White Blood Count 9.1 TH/MM3 12/06/17 0843 Hemoglobin 13.8 GM/DL 12/06/17 0843 Platelet Count 160 TH/MM3 12/06/17 0843 Sodium Level 138 MEQ/L 12/06/17 0843 Potassium Level 3.5 MEQ/L 12/06/17 0843 Chloride Level 104 MEQ/L 12/06/17 0843 Carbon Dioxide Level 24.7 MEQ/L 12/06/17 0843 Blood Urea Nitrogen 10 MG/DL 12/06/17 0843 Creatinine 0.98 MG/DL 12/06/17 0843 Estimat Glomerular Filtration Rate 78 ML/MIN L 12/06/17 0843 Random Glucose 96 MG/DL 12/06/17 0843 Aspartate Amino Transf (AST/SGOT) 19 U/L 12/06/17 0843 Alanine Aminotransferase (ALT/SGPT) 32 U/L 12/06/17 0843 Alkaline Phosphatase 77 U/L 12/06/17 0843 B-Type Natriuretic Peptide 423 PG/ML H 12/05/17 1250 Mental Status Examination Appearance: Appropriate Consciousness: Alert Orientation: x4 Motor Activity: Other (no motor abnormalities noted) Speech: Unremarkable Language: Adequate Fund of Knowledge: Adequate Attention and Concentration: Adequate Memory: Unremarkable Mood: Appropriate Affect: Appropriate Thought Process & Associations: Intact, Logical, Goal directed, Linear Thought Content: Appropriate Hallucination Type: None Delusion Type: None Suicidal Ideation: No Suicidal Plan: No Suicidal Intention: No Homicidal Ideation: No Homicidal Plan: No Homicidal Intention: No Insight: Adequate Judgment: Adequate Assessment & Plan Problem List: (1) Adjustment disorder with anxiety ICD Codes: F43.22 - Adjustment disorder with anxiety (2) History of post traumatic stress disorder ICD Codes: Z86.59 - Personal history of other mental and behavioral disorders Assessment & Plan 61-year-old male with psychiatric history as detailed above presently voluntarily admitted to the medical floor for management of A. fib with RVR. Psychiatry is consulted because the patient seemed somewhat more distressed yesterday. On my evaluation today, the patient reports that his psychosocial stressors have abated, and he feels that he is doing well psychiatrically. He is not interested in psychotropic medication adjustment at this time. If anxiety were to remain prominent, and if the patient were receptive to medication adjustment in the future, I might consider titrating his Cymbalta to a dose of 60 mg daily. I would check a TSH if this has not been done recently. Patient does not meet Blake act criteria at this time nor does he require inpatient psychiatric stabilization. I have recommended to the patient that he follow up with his outpatient psychiatric provider. I have counseled the patient regarding warning signs for need to return to the psychiatric emergency room as part of the general safety plan. Case discussed with Dr. Martinez. Thank you very much for this consultation. I will not plan to make routine follow-up visits with this patient but psychiatry is happy to return to see the patient needed. Request Surrog/Guard Advoc?: No Rafa Hatch MD Dec 07, 2017 10:55
--- NOTE | 2017-12-07 11:20 | HHI.PR ---
Subjective Remarks patient feels better- clinically and emotionally- denies any chest pain or discomfort up and ambulating Objective Vitals Vital Signs Date Time Temp Pulse Resp B/P (MAP) Pulse Ox O2 Delivery O2 Flow Rate FiO2 12/07/17 08:00 97.4 83 18 130/86 (101) 97 12/07/17 04:40 75 122/77 (92) 12/07/17 04:25 98.3 84 18 116/73 (87) 12/07/17 04:25 Room Air 12/07/17 03:41 74 12/07/17 00:40 75 116/77 12/06/17 23:55 69 111/76 (88) 12/06/17 23:44 72 12/06/17 23:40 79 122/83 (96) 12/06/17 23:25 81 119/77 (91) 12/06/17 23:10 Room Air 12/06/17 23:10 97.9 75 18 107/72 (84) 96 12/06/17 20:17 Room Air 12/06/17 20:17 97.6 104 21 116/77 (90) 96 12/06/17 19:45 95 12/06/17 16:00 100 12/06/17 16:00 98.5 113 17 121/85 (97) 98 12/06/17 15:19 125 12/06/17 12:00 98.1 109 18 131/87 (102) 96 I/O 12/06/17 12/06/17 12/06/17 12/07/17 12/07/17 12/07/17 07:00 15:00 23:00 07:00 15:00 23:00 Intake Total 360 ml 1037 ml Balance 360 ml 1037 ml Intake Oral 360 ml 920 ml IV Total 117 ml # Voids 2 6 # Bowel Movements 0 1 Result Diagram: 12/06/17 0843 12/06/17 0843 Imaging Last Impressions Chest X-Ray 12/05/17 1242 Signed Impressions: Service Date/Time: Tuesday, December 05, 2017 13:31 - CONCLUSION: No acute disease. Vaibhav Coulter Jr., MD Objective Remarks awake and alert anxious anicteric lungs- clear irregularly irregular rhythm abdomen-soft nontender extremities- no edema A/P Assessment and Plan 61 years old male A Atrial fibrillation with RVR. - now controlled CArdiomyopathy-not in clinical failure- EF 20% states history of a fib in the past- had to be cardioverted per patient -bec - difficult to control and placed - on Coreg as OP states compliance. Per pt, At one point was on amiodarone currently down on Cardizem drip 5 mg/hr- will change to po cardizem 30 mg po q8 received IV Digoxin- x 2 Coreg 25 mg po bid Enalapril 2.5 mg daily no history of CAD, TIA or CVA, not diabetic started onEliquis Cardiolgy ff Acute alcohol withdrawal with tachycardia, atrial fibrillation with RVR. Patient counseled on alcohol cessation. CIWA protocol Continue to monitor. contributing factor to rapid a fib states drinks Vodka - 3 shots daily, no history of DTs on Librium scheduled dose- gradual taper Anxiety.- patient feels much better today- calm d/w Psychiatry-- on cymbalta Increase activity and montior possible DC this pm if remains rate controlled on switched to po Cardizem ADD: 2:35 pm HR 70s up and ambulating feels great DC Clay Martinez MD Dec 07, 2017 11:20
[2017-12-07] MEDS ORDERED: DIGOXIN 0.25 MG TAB PO SCH (11:30)
[2017-12-07] MEDS ORDERED: DILTIAZEM HCL 30 MG TAB PO SCH (11:45)
--- NOTE | 2017-12-07 11:47 | PD.CARD.PN ---
Subjective Subjective Remarks Feels "great". Denies dyspnea, palpitations, CP, dizziness. Slept very well. Objective Medications Item Value Date Time Diltiazem HCl 30 mg 12/07/17 1145 (Cardizem) Q8HR/PO Enalapril Maleate 2.5 mg 12/07/17 0900 (Vasotec) DAILY/PO 12/07/17 0925 Carvedilol 25 mg 12/06/17 2100 (Coreg) Q12HR/PO 12/07/17 0925 Apixaban 5 mg 12/06/17 2100 (Eliquis) BID/PO 12/07/17 09 Chlordiazepoxide 25 mg 12/06/17 1800 (Librium) TID/PO 12/07/17 09 Current Medications Medications (Trade) Dose Ordered Sig/Noy Route Start Time Stop Time Status Last Admin (Cardizem Inj) 34 mg ONCE PRN IV PUSH 12/05/17 13:45 12/05/17 14:16 (NS Flush) 2 ml UNSCH PRN IV FLUSH 12/05/17 16:00 (NS Flush) 2 ml BID IV FLUSH 12/05/17 21:00 12/06/17 20:20 (Narcan Inj) 0.4 mg UNSCH PRN IV PUSH 12/05/17 16:00 (Milk Of Magnesia Liq) 30 ml Q12H PRN PO 12/05/17 16:00 (Senokot) 17.2 mg Q12H PRN PO 12/05/17 16:00 (Dulcolax Supp) 10 mg DAILY PRN RECTAL 12/05/17 16:00 (Lactulose Liq) 30 ml DAILY PRN PO 12/05/17 16:00 (Romazicon Inj) 0.2 mg Q1M PRN IV PUSH 12/05/17 18:45 (Ativan) 1 mg Q4H PRN PO 12/05/17 18:45 12/06/17 18:12 (Ativan Inj) 1 mg Q4H PRN IV PUSH 12/05/17 18:45 (Ativan) 2 mg Q2H PRN PO 12/05/17 18:45 (Ativan Inj) 2 mg Q2H PRN IV PUSH 12/05/17 18:45 (Ativan Inj) 2 mg Q1H PRN IV PUSH 12/05/17 18:45 (Ativan Inj) 2 mg Q15M PRN IV PUSH 12/05/17 18:45 (Cymbalta Dr) 30 mg DAILY PO 12/06/17 09:00 12/07/17 09:26 (Flonase [place] Spr) 1 spray BID EACH NARE 12/05/17 23:45 12/06/17 20:20 (Claritin) 10 mg DAILY PO 12/06/17 09:00 12/07/17 09:00 (Ultram) 50 mg Q4H PRN PO 12/05/17 23:45 12/07/17 09:34 (Desyrel) 100 mg HS PO 12/05/17 23:45 12/06/17 20:19 (Librium) 25 mg TID PO 12/06/17 18:00 12/07/17 09:25 (Coreg) 25 mg Q12HR PO 12/06/17 21:00 12/07/17 09:25 (Eliquis) 5 mg BID PO 12/06/17 21:00 12/07/17 09:26 (Vasotec) 2.5 mg DAILY PO 12/07/17 09:00 12/07/17 09:25 (Cardizem) 30 mg Q8HR PO 12/07/17 11:45 UNV Vital Signs / I&O Vital Signs Date Time Temp Pulse Resp B/P (MAP) Pulse Ox O2 Delivery O2 Flow Rate FiO2 12/07/17 08:00 97.4 83 18 130/86 (101) 97 12/07/17 04:40 75 122/77 (92) 12/07/17 04:25 98.3 84 18 116/73 (87) 12/07/17 04:25 Room Air 12/07/17 03:41 74 12/07/17 00:40 75 116/77 12/06/17 23:55 69 111/76 (88) 12/06/17 23:44 72 12/06/17 23:40 79 122/83 (96) 12/06/17 23:25 81 119/77 (91) 12/06/17 23:10 Room Air 12/06/17 23:10 97.9 75 18 107/72 (84) 96 12/06/17 20:17 Room Air 2/24/18 20:17 97.6 104 21 116/77 (90) 96 12/06/17 19:45 95 12/06/17 16:00 100 12/06/17 16:00 98.5 113 17 121/85 (97) 98 12/06/17 15:19 125 12/06/17 12:00 98.1 109 18 131/87 (102) 96 I/O 12/06/17 12/06/17 12/06/17 12/07/17 12/07/17 12/07/17 07:00 15:00 23:00 07:00 15:00 23:00 Intake Total 360 ml 1037 ml Balance 360 ml 1037 ml Intake Oral 360 ml 920 ml IV Total 117 ml # Voids 2 6 # Bowel Movements 0 1 Physical Exam GENERAL: Well developed, well nourished. No acute distress. HEENT: Jugular venous pressure is normal. CHEST: Lungs clear to auscultation bilaterally. Unlabored respiratory effort. CARDIAC: Irregular rate and rhythm without S3, S4, or murmur. ABDOMEN: Soft, nontender, no hepatosplenomegaly. Bowel sounds present. EXTREMITIES: No clubbing, cyanosis, or edema. Assessment and Plan Problem List: (1) Paroxysmal atrial fibrillation ICD Codes: I48.0 - Paroxysmal atrial fibrillation Status: Acute Plan: Remains in atrial fib, HR's now controlled. Thromboembolic risk at least moderately elevated with his cardiomyopathy, history of HTN. REC OK to discharge home later today if HR's remain under control on oral diltiazem continue apixaban (2) Cardiomyopathy ICD Codes: I42.9 - Cardiomyopathy, unspecified Plan: Severe dilated cardiomyopathy. Compensated. No CHF. Suspect cardiomyopathy tachycardia-induced. Rec continue beta jimenez, KIA-I. Rec repeat echo in 90 days. (3) Hypertension ICD Codes: I10 - Essential (primary) hypertension Status: Chronic Plan: Stable on current regimen. Normotensive. Code Status full code Discussed Condition With patient Problem Qualifiers (1) Cardiomyopathy: Qualified Codes: I42.8 - Other cardiomyopathies (2) Hypertension: Qualified Codes: I10 - Essential (primary) hypertension Lior Montalvo MD Dec 07, 2017 11:46
[2017-12-07 12:00] VITALS: BP 113/81; PULSE 75; PULSE 77; RESP 18; TEMP 96.2; O2SAT 97
[2017-12-07] MEDS ORDERED: DILT31TA PO (14:42)
[2017-12-07] MEDS ORDERED: APIX5TAB PO (14:42)
[2017-12-07] MEDS ORDERED: ENAL2.5T PO (14:42)
--- NOTE | 2017-12-07 14:46 | HHI.DS ---
Discharge Summary Admission Date Dec 05, 2017 at 16:00 Discharge Date: Dec 07, 2017 Admitting Diagnosis acute atrial fibrillation with RVR (1) Atrial fibrillation with RVR ICD Code: I48.91 - Unspecified atrial fibrillation Diagnosis: Principal Status: Acute (2) Cardiomyopathy ICD Code: I42.9 - Cardiomyopathy, unspecified Diagnosis: Principal (3) Adjustment disorder with anxiety ICD Code: F43.22 - Adjustment disorder with anxiety Diagnosis: Secondary Procedures none Brief History - From Admission 61-year-old male with a history of hypertension, depression, atrial fibrillation ,recent ongoing divorce proceedings coupled with heavy drinking of 3-4 vodka drinks per day, who presents with a one-week history of aggressively worsening shortness of breath, orthopnea. He denies any chest pain, lightheadedness, dizziness. He does report chills occasionally, no fevers. Patient says he has been drinking heavily over the past several months due to his ongoing divorce. Patient reports previous history of atrial fibrillation with RVR in 2010 following previous break up, heavy drinkingthis was resistant to medication ( although CIWA was not tried) and eventually required cardioversion CBC/BMP: 12/06/17 0843 12/06/17 0843 Significant Findings Laboratory Tests Test 12/05/17 12:50 12/06/17 08:43 Red Blood Count 4.26 MIL/MM3 (4.50-5.90) 3.91 MIL/MM3 (4.50-5.90) Mean Corpuscular Volume 102.9 FL (80.0-100.0) 102.6 FL (80.0-100.0) Mean Corpuscular Hemoglobin 35.0 PG (27.0-34.0) 35.4 PG (27.0-34.0) Neutrophils (%) (Auto) 76.7 % (16.0-70.0) Monocytes (%) (Auto) 10.4 % (0.0-8.0) 9.6 % (0.0-8.0) Monocytes # (Auto) 1.0 TH/MM3 (0-0.9) Albumin 3.1 GM/DL (3.4-5.0) 3.0 GM/DL (3.4-5.0) Magnesium Level 1.4 MG/DL (1.5-2.5) Estimat Glomerular Filtration Rate 73 ML/MIN (>89) 78 ML/MIN (>89) Troponin I LESS THAN 0.02 NG/ML B-Type Natriuretic Peptide 423 PG/ML (0-100) Imaging Last Impressions Chest X-Ray 12/05/17 1242 Signed Impressions: Service Date/Time: Tuesday, December 05, 2017 13:31 - CONCLUSION: No acute disease. Vaibhav Coulter Jr., MD PE at Discharge awake and alert anxious anicteric lungs- clear irregularly irregular rhythm- rate controlled- up and ambulating abdomen-soft nontender extremities- no edema Pt update on day of discharge awake and alert, no distress, up and ambulating= rate controlled smiling and interactive - emotionally feels "great" now very appreciative of care he received from the staff Hospital Course 61 years old male A Atrial fibrillation with RVR. - now controlled CArdiomyopathy-not in clinical failure- EF 20% states history of a fib in the past- had to be cardioverted per patient -bec - difficult to control and placed - on Coreg as OP states compliance. Per pt, At one point was on amiodarone currently down on Cardizem drip 5 mg/hr- will change to po cardizem 30 mg po q8 received IV Digoxin- x 2 Coreg 25 mg po bid Enalapril 2.5 mg daily no history of CAD, TIA or CVA, not diabetic started onEliquis Cardiolgy ff- cleared for DC- ff up echo in 90 days advise ff up with Cardiology- Dr Montalvo or [facility] Acute alcohol withdrawal with tachycardia, atrial fibrillation with RVR. Patient counseled on alcohol cessation. CIWA protocol Continue to monitor. contributing factor to rapid a fib states drinks Vodka - 3 shots daily, no history of DTs on Librium scheduled dose- gradual taper Anxiety.- patient feels much better today- calm d/w Psychiatry-- continue on cymbalta Increase activity and montior possible DC this pm if remains rate controlled on switched to po Cardizem ADD: 2:35 pm HR 70s up and ambulating feels great DChome today OP ff up with [facility] Pt Condition on Discharge: Stable Discharge Disposition: Discharge Home Discharge Time: <= 30 minutes Discharge Instructions DIET: Follow Instructions for: Heart Healthy Diet Activities you can perform: Weight Bearing as [place] Activities to Avoid: Prolonged Standing, Strenuous Activity Follow up Referrals: Cardiology - 2 Weeks with Lior Montalvo MD PCP Follow-up - 3-5 Days with [facility] New Orders: 2D ECHO - 3 Months New Medications: Apixaban (Eliquis) 5 Mg Tab 5 MG PO BID for a fib for 30 Days, #60 TAB 3 Refills Diltiazem (Cardizem) 30 Mg Tab 30 MG PO Q8HR for afib for 30 Days, #90 TAB Enalapril (Enalapril) 2.5 Mg Tab 2.5 MG PO DAILY for CMP for 30 Days, #30 TAB 2 Refills Continued Medications: Carvedilol (Carvedilol) 25 Mg Tab 25 MG BID, #60 TAB [address] (Duloxetine DR) 30 Mg Capdr 30 MG PO DAILY, #30 CAP 0 Refills Fluticasone Nasal [place] (Fluticasone Nasal [place]) 50 Mcg/Act Naspr 50 MCG EACH NARE BID for Allergy Management, #1 BOTTLE 0 Refills 50 mcg/spray Hydroxyzine HCl (Hydroxyzine HCl) 10 Mg Tab 10 MG PO TID, TAB 0 Refills Loratadine (Claritin) 10 Mg Cap 10 MG PO DAILY for Allergy Management, CAP 0 Refills Multiple Vitamin (Multi-Vitamin Daily) 1 Tab Tab 1 TAB PO DAILY for Nutritional Supplement, TAB 0 Refills Trazodone (Trazodone) 100 Mg Tablet 100 MG PO HS for Control Depression, #30 TAB 0 Refills Discontinued Medications: Aspirin (Aspir-81) 81 Mg Tabdr Tramadol (Tramadol) 50 Mg Tab 50 MG PO Q4H PRN for PAIN, TAB 0 Refills Clay Martinez MD Dec 07, 2017 14:46
== END 2017-12-07 16:06 | disposition home or self-care (01) | DRG 309 ==
LOC: NEPE 12:15 → NEDA 16:00 → N04B 17:18
PROVIDERS: ADMIT Internal Medicine; ATTEND Internal Medicine
DX: I48.0 Paroxysmal atrial fibrillation (principal); F10.239 Alcohol dependence with withdrawal, unspecified; I42.0 Dilated cardiomyopathy; F43.22 Adjustment disorder with anxiety; I10 Essential (primary) hypertension; F32.9 Major depressive disorder, single episode, unspecified; R00.0 Tachycardia, unspecified; F43.10 Post-traumatic stress disorder, unspecified; F12.90 Cannabis use, unspecified, uncomplicated; Z87.891 Personal history of nicotine dependence; Z23 Encounter for immunization
CPT/HCPCS: 71045; 80053; 82550; 83735; 83880; 84484; 85025; 85610; 85730; 90732; 93005; 93306; 96365; 96375; 96376; J1160; J3475